=== PATIENT | male | born 1980 | race Caucasian/White ===

== ENCOUNTER 2018-11-27 18:52 | Emergency (ER) | payer SELFPAY ==
[~2018-11-27] VITALS: Ht 177.8 cm; Wt 86.0 kg
[2018-11-27 20:30] VITALS: BP 154/50
== END 2018-11-27 20:35 | disposition left against medical advice (07) ==
LOC: ER 18:52
DX: M79.10 Myalgia, unspecified site (principal); R53.1 Weakness; Z53.21 Procedure and treatment not carried out due to patient leaving prior to being seen by health care provider